=== PATIENT | female | born 1985 | race Two or more races ===

== ENCOUNTER 2019-08-26 11:21 | Emergency (ER) | payer OTHER ==
[~2019-08-26] VITALS: Ht 165.1 cm; Wt 81.6 kg
[2019-08-26] MEDS ORDERED: IBU600 MG PO (13:17)
[2019-08-26] MEDS ORDERED: ZITHROMAX500 MG PO (13:17)
== END 2019-08-26 13:31 | disposition home or self-care (01) ==
LOC: ER 11:21
DX: H66.92 Otitis media, unspecified, left ear (principal); H60.8X2 Other otitis externa, left ear

== ENCOUNTER 2020-05-26 11:52 | Emergency (ER) | payer OTHER ==
[~2020-05-26] VITALS: Ht 165.1 cm; Wt 89.8 kg
[~2020-05-26 11:52] MED LIST: IBU600 MG PO; ZITHROMAX500 MG PO
[2020-05-26] MEDS ORDERED: AZITHROMYCIN250 MG PO (18:36)
[2020-05-26] MEDS ORDERED: MUCINEX DM ER1 EACH PO (18:36)
[2020-05-26] MEDS ORDERED: INTESTINEX680 M2 PO (18:36)
== END 2020-05-26 18:42 | disposition home or self-care (01) ==
LOC: ER 11:52
DX: B34.9 Viral infection, unspecified (principal); Z03.818 Encounter for observation for suspected exposure to other biological agents ruled out

== ENCOUNTER 2021-05-27 08:59 | Emergency (ER) | payer OTHER ==
[~2021-05-27] VITALS: Ht 165.1 cm; Wt 83.9 kg
[~2021-05-27 08:59] MED LIST changes: +AZITHROMYCIN250 MG PO; +INTESTINEX680 M2 PO; +MUCINEX DM ER1 EACH PO
== END 2021-05-27 11:39 | disposition home or self-care (01) ==
LOC: ER 08:59
DX: N93.8 Other specified abnormal uterine and vaginal bleeding (principal); R19.09 Other intra-abdominal and pelvic swelling, mass and lump

== ENCOUNTER 2024-10-14 08:14 | Outpatient (CLI) | payer OTHER ==
[2024-10-14 10:23] LABS: BASO % 0.5 % (0.1-1.2); EOS # 0.14 (0.04-0.54); EOS % 1.3 % (0.7-7.0); HEMATOCRIT 36.8 % (34.1-44.9); HEMOGLOBIN 12.5 g/dL (11.2-15.7); LYMPH # 2.09 (1.18-3.74); MEAN CORPUSCULAR HEMOGLOBIN 30.4 pg (25.6-32.2); MONO # 0.65 (0.24-0.82); MONO % 6.2 % (4.7-12.5); NEUT # 7.46 (1.56-6.13); NEUT % 71.5 % (34.0-71.1); PLATELET COUNT 264 K/uL (163-369); RED BLOOD COUNT 4.11 M/uL (3.93-5.22)
[2024-10-14 10:24] LABS: PH,URINE 7.5 (5.0-8.0); URINE APPEARANCE Cloudy; URINE BILIRRUBIN Negative (NEGATIVE); URINE BLOOD Negative; URINE COLOR Yellow; URINE GLUCOSE Negative (NEGATIVE); URINE KETONE Negative (NEGATIVE); URINE LEUKOCYTE Negative; URINE NITRATE Negative; URINE PROTEIN Negative (NEGATIVE)
[2024-10-14 10:25] LABS: URINE BACTERIA 199.4 uL (0.0-1933); URINE EPITHELIAL CELLS 7.7 uL (0.0-38.8); URINE RBC 13.4 uL (0.0-20.8)
== END 2024-10-14 08:19 | disposition home or self-care (01) ==
LOC: LAB 08:14
PROVIDERS: ATTEND Obstetrics & Gynecology Maternal & Fetal Medicine
DX: Z34.82 Encounter for supervision of other normal pregnancy, second trimester (principal)

== ENCOUNTER 2025-01-18 12:25 | Outpatient (CLI) | payer OTHER | END 2025-01-18 12:56 | disposition home or self-care (01) | LOC: NST 12:25 | PROVIDERS: ATTEND Obstetrics & Gynecology | DX: Z34.83 Encounter for supervision of other normal pregnancy, third trimester (principal) ==

== ENCOUNTER 2025-01-23 13:10 | Inpatient (IN) | payer OTHER ==
[~2025-01-23] VITALS: Ht 165.1 cm; Wt 123.8 kg
[2025-01-23 13:35] VITALS: BP 127/69
[2025-01-23] MEDS ORDERED: RINGERS SOLUTION,LACTATED 1,000 ML IV SCH (14:00)
[2025-01-23 14:27] LABS: BASO % 0.4 % (0.1-1.2); EOS # 0.05 (0.04-0.54); EOS % 0.5 % (0.7-7.0); LYMPH # 2.21 (1.18-3.74); LYMPH % 23.4 % (19.3-53.1); MEAN PLATELET VOLUME 10.50 fl (9.4-12.4); MONO # 0.63 (0.24-0.82); MONO % 6.7 % (4.7-12.5); NEUT # 6.46 (1.56-6.13); NEUT % 68.6 % (34.0-71.1); RED CELL DISTRIBUTION WIDTH 13.1 % (11.6-14.4)
[2025-01-23 14:35] LABS: URINE APPEARANCE Clear; URINE BILIRRUBIN Negative (NEGATIVE); URINE BLOOD Negative; URINE COLOR Yellow; URINE GLUCOSE Negative (NEGATIVE); URINE KETONE Trace (NEGATIVE); URINE LEUKOCYTE Trace; URINE NITRATE Negative; URINE PROTEIN Negative (NEGATIVE); URINE UROBILINOGEN 0.2 E.U./dl
[2025-01-23 14:40] LABS: URINE BACTERIA 279.6 uL (0.0-1933); URINE EPITHELIAL CELLS 17.2 uL (0.0-38.8); URINE RBC 8.0 uL (0.0-20.8); URINE WBC 21.2 uL (0.0-23.2)
[2025-01-23 14:42] LABS: URINE CAST 0.00 uL (0.0-1.40)
[2025-01-23] MEDS ORDERED: PRENATAL VITAM1 EAC5 PO (14:56)
[2025-01-23 14:57] LABS: INR 0.98
[2025-01-23 15:20] VITALS: BP 136/75
[2025-01-23 15:52] LABS: BUN CREA RATIO 15.0 (7.0-25.0); CREATININE SERUM 0.61 mg/dL (0.55-1.02); GFR 110.36; GLUCOSE FASTING 105.0 mg/dL (65-100); OSMOLALITY SERUM 278.0 MOSM/KG (275-295)
[2025-01-23 15:53] LABS: ALT/SGPT 15.0 U/L (12-78); AST/SGOT 13.0 U/L (15-37); BILIRUBIN TOTAL 0.29 mg/dL (0.3-1.2); GLOBULINA 4.1 G/DL (2.4-3.5)
[2025-01-23 20:45] VITALS: BP 145/89
[2025-01-23 23:44] VITALS: BP 116/66
[2025-01-24 03:15] VITALS: BP 118/60
[2025-01-24] MEDS ORDERED: OXYTOCIN 500 ML IV ONE (07:30)
[2025-01-24 07:39] VITALS: BP 158/88
[2025-01-24] MEDS ORDERED: OXYTOCIN 20 UNITS/1000ML RL PIGGYBAG IV ONE (11:22)
[2025-01-24] MEDS ORDERED: ERYTHROMYCIN BASE OPHT 1GM EACH TUBE OP ONE ×2 (11:22→15:15)
[2025-01-24] MEDS ORDERED: CHLORHEXIDINE GLUCONATE 120 ML BOTTLE TOP ONE (11:22)
[2025-01-24] MEDS ORDERED: LIDOCAINE HCL 1% 10ML VIAL ONE (11:22)
[2025-01-24] MEDS ORDERED: ONDANSETRON HCL 2 MG/ML VIAL IV ONE (11:30)
[2025-01-24 11:38] VITALS: BP 148/89
[2025-01-24] MEDS ORDERED: OXYTOCIN 1,000 ML IV ONE (14:30)
[2025-01-24] MEDS ORDERED: CHLORHEXIDINE GLUCONATE 120 ML BOTTLE TP SCH (14:30)
[2025-01-24] MEDS ORDERED: LIDOCAINE HCL 1% 10ML VIAL PERCUT ONE (15:15)
[2025-01-24 16:16] VITALS: BP 138/78
[2025-01-24] MEDS ORDERED: DOCUSATE SODIUM 100MG CAP PO SCH (17:00)
[2025-01-24 19:05] VITALS: BP 138/85
[2025-01-25 00:39] VITALS: BP 114/73
[2025-01-25 07:13] LABS: BASO % 0.3 % (0.1-1.2); EOS # 0.03 (0.04-0.54); EOS % 0.2 % (0.7-7.0); LYMPH # 3.07 (1.18-3.74); LYMPH % 21.7 % (19.3-53.1); MEAN PLATELET VOLUME 10.50 fl (9.4-12.4); MONO # 1.23 (0.24-0.82); MONO % 8.7 % (4.7-12.5); NEUT # 9.72 (1.56-6.13); NEUT % 68.7 % (34.0-71.1); RED CELL DISTRIBUTION WIDTH 13.2 % (11.6-14.4)
[2025-01-25 08:59] VITALS: BP 131/80
[2025-01-25] MEDS ORDERED: PNV,CALCIUM 72/IRON/FOLIC ACID 1 TAB TABLET PO SCH (09:00)
[2025-01-25] MEDS ORDERED: KETOROLAC TROMETHAMINE 10 MG TABLET PO PRN (14:00)
[2025-01-25 18:17] VITALS: BP 131/81
[2025-01-26 08:35] VITALS: BP 132/92; O2SAT 98
== END 2025-01-26 14:37 | disposition home or self-care (01) | DRG 807 ==
LOC: LDR 13:10 → OB/GYN 01-24 12:32 → LDR 01-24 12:46 → OB/GYN 01-24 14:49 → LDR 01-28 16:28
PROVIDERS: Obstetrics & Gynecology Gynecology; ADMIT Obstetrics & Gynecology; ATTEND Obstetrics & Gynecology
PROC: 4A1HXCZ Monitoring of Products of Conception, Cardiac Rate, External Approach (ICD-10-PCS; 2025-01-23)
PROC: 10E0XZZ Delivery of Products of Conception, External Approach (ICD-10-PCS; principal; 2025-01-24)
PROC: 0KQM0ZZ Repair Perineum Muscle, Open Approach (ICD-10-PCS; 2025-01-24)
DX: O70.1 Second degree perineal laceration during delivery (principal); Z37.0 Single live birth; Z3A.40 40 weeks gestation of pregnancy